=== PATIENT | female | born 1995 | race Caucasian/White ===

== ENCOUNTER 2017-07-29 16:16 | Emergency (ER) | payer OTHER ==
[~2017-07-29] VITALS: Ht 157.5 cm; Wt 44.4 kg
[2017-07-29 16:40] VITALS: TEMP 36.6; Ht 157.5 cm; Wt 44.4 kg
--- NOTE | 2017-07-29 16:43 | EMERGENCY ROOM VISIT NOTE ---
History Report prepared by Av: Jeri Dennis Under the Supervision of: Dr. Petros العراقي M.D. 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 The patient notes pain in neck is radiating to right arm and right shoulder. The patient notes a headache and numbness in right arm to right shoulder. She currently rates the pain a 2/10 in severity. She states that a chiropractor adjusted her back and shoulders, which provided her mild relief, though the pain has returned. She notes mild loss of strength in right shoulder. She denies any . Her LNMP was three weeks ago. She reports a history of swollen disc. I offered to call her parents and she refused. The patient states that she has notified her parents. 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 Review of Systems See HPI for pertinent positives & negatives. A total of 10 systems reviewed and were otherwise negative. Past Medical & Surgical Medical Problems: (1) Cyst removed from right eyelid (2) Gum surgery Surgical Problems: (1) H/O wisdom tooth extraction Family History Cancer Diabetes mellitus Social History Smoking Status: Never Smoker Smokeless Tobacco Use: No Alcohol Use: none Drug Use: none Marital Status: single Housing Status: lives with roommate Occupation Status: student Current/Historical Medications No Active Prescriptions or Reported Meds Allergies Coded Allergies: No Known Allergies (Unverified , 07/29/17) Physical Exam Vital Signs Date Time Temp Pulse Resp B/P (MAP) Pulse Ox O2 Delivery O2 Flow Rate FiO2 07/29/17 20:40 66 16 109/62 99 Room Air 07/29/17 19:20 70 16 123/76 98 Room Air 07/29/17 16:40 36.6 95 18 123/85 93 Room Air Physical Exam GENERAL: Patient is a healthy-appearing well-nourished female. HEAD: Normocephalic atraumatic EYES: Ocular movements intact pupils equal and react to light OROPHARYNX mucous membranes are moist no exudates present no erythema or edema present NECK: Supple no nuchal rigidity CHEST: Good equal expansion LUNGS: Clear and equal to auscultation CARDIAC: Normal S1 and S2 ABDOMEN: Soft nontender no guarding BACK: No CVA tenderness EXTREMITIES: No pain upon palpation normal muscle strength in all groups no clubbing cyanosis or edema NEURO: Patient is following commands and answering questions appropriately. Alert and oriented x3 Cranial Nerves 2-12 grossly intact Medical Decision & Procedures ER Provider Diagnostic Interpretation: Radiology results as stated below per my review and radiologist interpretation: HEAD WITHOUT CONTRAST (CT) CT DOSE: HISTORY: Headache Pt c/o headache TECHNIQUE: Multiaxial CT images of the head were performed without the use of intravenous contrast. A dose lowering technique was utilized adhering to the principles of ALARA. Comparison: None. Findings: The paranasal sinuses and mastoid air cells are clear. The calvarium and skull base are intact. The ventricles and sulci are within normal limits. There is no mass, hematoma, midline shift, or acute infarct. Impression: No acute intracranial abnormality. The above report was generated using voice recognition software. It may contain grammatical, syntax or spelling errors. Electronically signed by: Yordy Valladares M.D. 07/29/2017 6:53 PM Dictated Date/Time: 07/29/2017 6:51 PM NECK ANGIO WITH CONTRAST HISTORY: Mental status change peripheral neuropathy TECHNIQUE: Multiaxial CT images of the neck were performed following the intravenous administration of contrast to evaluate the major cervical vessels. Maximum intensity projection images were also obtained. All measurements were calculated based on NASCET criteria. A dose lowering technique was utilized adhering to the principles of ALARA. COMPARISON STUDY: None. FINDINGS: The aortic arch and proximal great vessels are widely patent. In homogeneity of enhancement of the low jugular veins is present consistent with laminar flow defect. This is not significant clinically. There is no significant stenosis, occlusion, or dissection identified within the bilateral common carotid, internal carotid, or vertebral arteries. IMPRESSION: No significant stenosis, occlusion, or dissection identified within the carotid or vertebral arteries. The above report was generated using voice recognition software. It may contain grammatical, syntax or spelling errors. Electronically signed by: Yordy Valladares M.D. 07/29/2017 6:56 PM Dictated Date/Time: 07/29/2017 6:54 PM Laboratory Results 07/29/17 17:45 Red Blood Count 4.73, Mean Corpuscular Volume 86.3, Mean Corpuscular Hemoglobin 29.6, Mean Corpuscular Hemoglobin Concent 34.3, Mean Platelet Volume 10.1, Neutrophils (%) (Auto) 68.4, Lymphocytes (%) (Auto) 21.6, Monocytes (%) (Auto) 8.3, Eosinophils (%) (Auto) 1.3, Basophils (%) (Auto) 0.2, Neutrophils # (Auto) 6.15, Lymphocytes # (Auto) 1.94, Monocytes # (Auto) 0.75, Eosinophils # (Auto) 0.12, Basophils # (Auto) 0.02 07/29/17 17:45 Test 07/29/17 17:44 07/29/17 17:45 Bedside Hemoglobin 13.9 g/dl (12.0-16.0) Bedside Hematocrit 41 % (37-47) Bedside Sodium 143 mEq/L (135-144) Bedside Potassium 3.4 mEq/L (3.3-5.0) Bedside Chloride 102 mEq/L (101-112) Bedside Total CO2 26 mEq/l (24-31) Bedside Blood Urea Nitrogen 8 mg/dl (7-18) Bedside Creatinine 0.5 mg/dl Bedside Glucose (other) 116 mg/dl (70-99) Bedside Ionized Calcium (Viktor) 1.19 mmol/l White Blood Count 9.00 K/uL (4.8-10.8) Red Blood Count 4.73 M/uL (4.2-5.4) Hemoglobin 14.0 g/dL (12.0-16.0) Hematocrit 40.8 % (37-47) Mean Corpuscular Volume 86.3 fL (80-100) Mean Corpuscular Hemoglobin 29.6 pg (25-34) Mean Corpuscular Hemoglobin Concent 34.3 g/dl (32-36) Platelet Count 194 K/uL (130-400) Mean Platelet Volume 10.1 fL (7.4-10.4) Neutrophils (%) (Auto) 68.4 % Lymphocytes (%) (Auto) 21.6 % Monocytes (%) (Auto) 8.3 % Eosinophils (%) (Auto) 1.3 % Basophils (%) (Auto) 0.2 % Neutrophils # (Auto) 6.15 K/uL (1.4-6.5) Lymphocytes # (Auto) 1.94 K/uL (1.2-3.4) Monocytes # (Auto) 0.75 K/uL (0.11-0.59) Eosinophils # (Auto) 0.12 K/uL (0-0.5) Basophils # (Auto) 0.02 K/uL (0-0.2) RDW Standard Deviation 39.2 fL (36.4-46.3) RDW Coefficient of Variation 12.3 % (11.5-14.5) Immature Granulocyte % (Auto) 0.2 % Immature Granulocyte # (Auto) 0.02 K/uL (0.00-0.02) Anion Gap 5.0 mmol/L (3-11) Est Creatinine Clear Calc Drug Dose 106.6 ml/min Estimated GFR () > 150.0 Estimated GFR (Non- 131.9 BUN/Creatinine Ratio 13.0 (10-20) Calcium Level 8.5 mg/dl (8.5-10.1) Total Bilirubin 0.5 mg/dl (0.2-1) Direct Bilirubin 0.1 mg/dl (0-0.2) Aspartate Amino Transf (AST/SGOT) 16 U/L (15-37) Alanine Aminotransferase (ALT/SGPT) 18 U/L (12-78) Alkaline Phosphatase 61 U/L (45-117) Total Protein 7.9 gm/dl (6.4-8.2) Albumin 4.1 gm/dl (3.4-5.0) Thyroid Stimulating Hormone (TSH) 1.980 uIu/ml (0.300-4.500) Labs reviewed by ED physician. Medications Administered Medications (Trade) Dose Ordered Sig/Moris Route Start Time Stop Time Status Last Admin Dose Admin Dexamethasone Sodium Phosphate (Dexamethasone Inj Pf) 10 mg STK-MED ONCE .ROUTE 07/29/17 17:51 07/29/17 17:52 DC 07/29/17 17:53 10 MG Potassium Chloride (Svitlana Ciel Elix) 40 meq NOW STAT PO 07/29/17 18:23 07/29/17 18:24 DC 07/29/17 18:44 40 MEQ ED Course 1713: Past medical records reviewed. The patient was evaluated in room C7. A complete history and physical examination was performed. 1722: Ordered Dexamethasone Sodium Phosphate 10 mg IV 1823: Ordered Potassium Chloride 40 meq PO 1900: I reassessed the patient at this time. I discussed the results and treatment plan with the patient. The patient is requesting any MRI. []: I reassessed the patient at this time. She is feeling better and resting comfortably. I discussed the results and treatment plan with the patient. I answered all pertaining questions that she had. She expressed understanding and verbalized agreement. The patient will be discharged home. Medical Decision Prior records/ancillary studies reviewed and summarized above. Nursing notes reviewed. The patient's history was concerning for weakness. Differential diagnosis: Etiologies such as metabolic, infection, hypo/hyperglycemia, electrolyte abnormalities, cardiac sources, intracerebral event, toxicologic, neurologic, as well as others were entertained. This is a 21-year-old female who presents emergency department complaining of right shoulder numbness after receiving chiropractic manipulation. Based on this finding the patient was sent for a CTA of the neck however this did not show any vertebral artery dissection. In addition she was also sent for an MRI of the neck however there is no evidence of bulging disc. The patient was given Decadron here in the emergency department with improvement in her symptoms. The patient has no weakness and I feel she can be safely discharged home for follow-up with orthopedics. Patient was in agreement with the treatment plan. Medication Reconcilliation Current Medication List: was personally reviewed by me Blood Pressure Screening Patient's blood pressure: Normal blood pressure Impression Primary Impression: Right arm numbness Scribe Attestation The scribe's documentation has been prepared under my direction and personally reviewed by me in its entirety. I confirm that the note above accurately reflects all work, treatment, procedures, and medical decision making performed by me. Departure Information Dispostion Home / Self-Care Prescriptions No Active Prescriptions or Reported Meds Referrals No Doctor, Assigned (PCP) Patient Instructions My [facility]
[2017-07-29] MEDS ORDERED: DEXAMETHASONE INJ 10 MG in SYRINGE 0 ML IV STA (17:22)
[2017-07-29] MEDS ORDERED: DEXAMETHASONE **PF** INJ 10 MG/ML VIAL ONE (17:51)
[2017-07-29 17:57] LABS: BASO % 0.2 %; BASO ABS # 0.02 K/uL (0-0.2); EOS % 1.3 %; EOS ABS # 0.12 K/uL (0-0.5); HEMATOCRIT 40.8 % (37-47); IG# 0.02 K/uL (0.00-0.02); LYMPH % 21.6 %; LYMPH ABS # 1.94 K/uL (1.2-3.4); MEAN CELL VOLUME 86.3 fL (80-100); MEAN CORPUSCULAR HEMOGLOBIN 29.6 pg (25-34); MEAN CORPUSCULAR HGB CONC 34.3 g/dl (32-36); MEAN PLATELET VOLUME 10.1 fL (7.4-10.4); MONO % 8.3 %; MONO ABS # 0.75 K/uL (0.11-0.59); NEUT % 68.4 %; NEUT ABS # 6.15 K/uL (1.4-6.5); PLATELET COUNT 194 K/uL (130-400); RED CELL DISTRIBUTION WIDTH CV 12.3 % (11.5-14.5); RED CELL DISTRIBUTION WIDTH SD 39.2 fL (36.4-46.3)
[2017-07-29 18:20] LABS: ALBUMIN 4.1 gm/dl (3.4-5.0); ALT/SGPT 18 U/L (12-78); AST/SGOT 16 U/L (15-37); BLOOD UREA NITROGEN 8 mg/dl (7-18); CALCIUM 8.5 mg/dl (8.5-10.1); CARBON DIOXIDE 27 mmol/L (21-32); CREATININE 0.59 mg/dl (0.60-1.20); GLUCOSE 106 mg/dl (70-99); POTASSIUM 3.3 mmol/L (3.5-5.1); SODIUM 139 mmol/L (136-145)
[2017-07-29] MEDS ORDERED: POTASSIUM CHLORIDE 20 MEQ/15 ML UDC PO STA (18:23)
[2017-07-29 18:24] LABS: ISTAT CREATININE 0.5 mg/dl; ISTAT IONIZED CALCIUM 1.19 mmol/l; ISTAT POTASSIUM 3.4 mEq/L (3.3-5.0)
[2017-07-29 18:30] LABS: ALKALINE PHOSPHATASE 61 U/L (45-117); TOTAL PROTEIN 7.9 gm/dl (6.4-8.2)
[2017-07-29] MEDS ORDERED: OPTIRAY 320 IV PRN (18:45)
--- NOTE | 2017-07-29 18:54 | DIAGNOSTIC IMAGING REPORT ---
HEAD WITHOUT CONTRAST (CT) CT DOSE: HISTORY: Headache Pt c/o headache TECHNIQUE: Multiaxial CT images of the head were performed without the use of intravenous contrast. A dose lowering technique was utilized adhering to the principles of ALARA. Comparison: None. Findings: The paranasal sinuses and mastoid air cells are clear. The calvarium and skull base are intact. The ventricles and sulci are within normal limits. There is no mass, hematoma, midline shift, or acute infarct. Impression: No acute intracranial abnormality. The above report was generated using voice recognition software. It may contain grammatical, syntax or spelling errors. Electronically signed by: Yordy Valladares M.D. 07/29/2017 6:53 PM Dictated Date/Time: 07/29/2017 6:51 PM
--- NOTE | 2017-07-29 18:57 | DIAGNOSTIC IMAGING REPORT ---
NECK ANGIO WITH CONTRAST HISTORY: Mental status change peripheral neuropathy TECHNIQUE: Multiaxial CT images of the neck were performed following the intravenous administration of contrast to evaluate the major cervical vessels. Maximum intensity projection images were also obtained. All measurements were calculated based on NASCET criteria. A dose lowering technique was utilized adhering to the principles of ALARA. COMPARISON STUDY: None. FINDINGS: The aortic arch and proximal great vessels are widely patent. In homogeneity of enhancement of the low jugular veins is present consistent with laminar flow defect. This is not significant clinically. There is no significant stenosis, occlusion, or dissection identified within the bilateral common carotid, internal carotid, or vertebral arteries. IMPRESSION: No significant stenosis, occlusion, or dissection identified within the carotid or vertebral arteries. The above report was generated using voice recognition software. It may contain grammatical, syntax or spelling errors. Electronically signed by: Yordy Valladares M.D. 07/29/2017 6:56 PM Dictated Date/Time: 07/29/2017 6:54 PM
[2017-07-29 20:40] VITALS: BP 109/62; PULSE 66; O2SAT 99
--- NOTE | 2017-07-29 20:40 | DIAGNOSTIC IMAGING REPORT ---
CERVICAL WITHOUT CONTRAST HISTORY: Pain. Neuropathy. Pt c/o Rt shoulder numbness TECHNIQUE: Multiplanar multisequence MRI of the cervical spine was performed without the use of contrast. COMPARISON STUDY: None. FINDINGS: Signal characteristics of the vertebral bodies as well as intervertebral this are unremarkable. Sagittal images show no abnormal signal characteristics of the cervical cord. C2-C3: No significant central canal or neural foraminal narrowing. C3-C4: No significant central canal or neural foraminal narrowing. C4-C5: No significant central canal or neural foraminal narrowing. C5-C6: No significant central canal or neural foraminal narrowing. C6-C7: No significant central canal or neural foraminal narrowing. C7-T1: No significant central canal or neural foraminal narrowing. IMPRESSION: Normal study The above report was generated using voice recognition software. It may contain grammatical, syntax or spelling errors. Electronically signed by: Yordy Valladares M.D. 07/29/2017 8:39 PM Dictated Date/Time: 07/29/2017 8:37 PM
== END 2017-07-29 20:57 | disposition home or self-care (01) ==
LOC: C.EDB 16:19 → C.EDC 20:57
DX: R20.0 Anesthesia of skin (principal); M54.2 Cervicalgia; M79.601 Pain in right arm; M25.511 Pain in right shoulder; Z83.3 Family history of diabetes mellitus